=== PATIENT | female | born 1945 ===

== ENCOUNTER 2023-12-11 15:17 | Outpatient (REF) | payer MEDICARE, SELFPAY ==
[2023-12-11 21:14] LABS: HCT 43.2 % (36.0-46.0); HGB 14.1 g/dL (11.2-15.7); MCH 30.7 pg (27.0-33.0); MCHC 32.6 % (32.0-36.0); MCV 94 fL (80-95); MPV 9.7 fL (8.0-11.0); Platelet Count 377 10^3/uL (130-400); RDW 12.6 % (11.7-14.6); RDW-SD 43.4 fL; WBC 9.57 10^3/uL (4.4-10.8)
[2023-12-11 21:37] LABS: ALT 27 U/L (14-59); AST 22 U/L (15-37); Albumin 4.3 g/dL (3.4-5.0); Alkaline Phosphatase 64 U/L (46-116); Anion Gap 8.7 mmol/L (3-11); BUN 16 mg/dL (7-18); Bilirubin, Total 0.5 mg/dL (0.2-1.0); CO2 29.3 mmol/L (21.0-32.0); CREATININE 0.9 mg/dL (0.55-1.02); Calcium 9.8 mg/dL (8.5-10.1); Chloride 107 mmol/L (98-107); Estimated GFR 65.44 (mL/min/1.73m2); Glucose 97 mg/dL (74-106); Potassium 4.8 mmol/L (3.5-5.1); Sodium 145 mmol/L (136-145); TSH (W/Ref FT4) 1.24 uIU/mL (0.36-3.74); Total Protein 7.4 g/dL (6.4-8.2)
== END 2023-12-11 15:18 | disposition home or self-care (01) ==
LOC: NCHCN 15:17
PROVIDERS: Referring Provider Family Medicine; Visit Provider Family Medicine
DX: R53.83 Other fatigue (principal)
CPT/HCPCS: 80053; 85027; 84443

== ENCOUNTER 2024-03-23 19:03 | Outpatient (REF) | payer MEDICARE, SELFPAY | END 2024-03-23 19:04 | disposition home or self-care (01) | LOC: NCHCN 19:03 | PROVIDERS: PCP Physician Assistant; Visit Provider Physician Assistant | DX: R30.0 Dysuria (principal) | CPT/HCPCS: 87086 ==

== ENCOUNTER 2024-03-31 17:10 | Outpatient (REF) | payer MEDICARE, OTHER, SELFPAY | END 2024-03-31 17:11 | disposition home or self-care (01) | LOC: NCHCN 17:10 | PROVIDERS: PCP Physician Assistant; Visit Provider Physician Assistant | DX: R30.0 Dysuria (principal); R82.998 Other abnormal findings in urine | CPT/HCPCS: 87077; 87086 ==